=== PATIENT | female | born 1990 | race Caucasian/White ===

== ENCOUNTER 2019-08-26 18:31 | Emergency (ER) | payer OTHER ==
[~2019-08-26] VITALS: Ht 167.6 cm; Wt 59.0 kg
== END 2019-08-26 21:27 | disposition home or self-care (01) ==
LOC: ER 18:31
DX: O46.8X1 Other antepartum hemorrhage, first trimester (principal); Z3A.01 Less than 8 weeks gestation of pregnancy

== ENCOUNTER 2019-09-10 12:35 | Day surgery (SDC) | payer OTHER | END 2019-09-10 20:00 | disposition home or self-care (01) | LOC: CIR.AMB 12:35 | DX: O02.1 Missed abortion (principal) ==

== ENCOUNTER 2022-12-31 21:27 | Emergency (ER) | payer OTHER ==
[~2022-12-31] VITALS: Ht 167.6 cm; Wt 53.5 kg
[2022-12-31] MEDS ORDERED: [UNRECOGNIZED DRUG - OTHER] (21:37)
== END 2022-12-31 22:56 | disposition home or self-care (01) ==
LOC: ER 21:27
DX: O20.8 Other hemorrhage in early pregnancy (principal); Z3A.09 9 weeks gestation of pregnancy; Z91.012 Allergy to eggs; Z91.018 Allergy to other foods

== ENCOUNTER 2023-01-12 13:35 | Emergency (ER) | payer OTHER ==
[~2023-01-12] VITALS: Ht 167.6 cm; Wt 52.6 kg
[~2023-01-12 13:35] MED LIST: [UNRECOGNIZED DRUG - OTHER]
== END 2023-01-12 17:24 | disposition home or self-care (01) ==
LOC: ER 13:35
DX: O26.891 Other specified pregnancy related conditions, first trimester (principal); R10.9 Unspecified abdominal pain; Z91.012 Allergy to eggs; Z91.018 Allergy to other foods; Z3A.10 10 weeks gestation of pregnancy

== ENCOUNTER 2023-01-25 00:29 | Emergency (ER) | payer OTHER ==
[~2023-01-25] VITALS: Ht 167.6 cm; Wt 52.2 kg
== END 2023-01-25 04:15 | disposition home or self-care (01) ==
LOC: ER 00:29
DX: O98.511 Other viral diseases complicating pregnancy, first trimester (principal); Z3A.12 12 weeks gestation of pregnancy; Z91.012 Allergy to eggs; Z91.018 Allergy to other foods; B34.9 Viral infection, unspecified; Z20.822 Contact with and (suspected) exposure to COVID-19

== ENCOUNTER 2023-02-27 08:04 | Outpatient (CLI) | payer OTHER | END 2023-02-27 08:08 | disposition home or self-care (01) | LOC: LAB 08:04 | PROVIDERS: ATTEND Obstetrics & Gynecology Maternal & Fetal Medicine | DX: Z34.82 Encounter for supervision of other normal pregnancy, second trimester (principal) ==

== ENCOUNTER 2023-03-18 15:55 | Outpatient (CLI) | payer OTHER | END 2023-03-18 16:42 | disposition home or self-care (01) | LOC: NST 15:55 | PROVIDERS: ATTEND Obstetrics & Gynecology Maternal & Fetal Medicine | DX: Z34.82 Encounter for supervision of other normal pregnancy, second trimester (principal) ==

== ENCOUNTER 2023-04-09 07:42 | Outpatient (CLI) | payer OTHER ==
[2023-04-09 09:24] LABS: HEMATOCRIT 35.3 % (36.0-45.00); HEMOGLOBIN 11.5 g/dL (12.0-15.00); MEAN CORPUSCULAR HEMOGLOBIN 31.1 pg (27.00-32.0); MEAN CORPUSCULAR HGB CONC 32.7 g/dl (32.0-36.0); PLATELET COUNT 224 K/uL (150-450); RED BLOOD COUNT 3.72 M/uL (4.00-6.00); RED CELL DISTRIBUTION WIDTH 12.3 % (11.5-14.5)
[2023-04-09 09:28] LABS: GLUCOSE FASTING 78 mg/dL (65-100)
== END 2023-04-09 07:43 | disposition home or self-care (01) ==
LOC: LAB 07:42
PROVIDERS: ATTEND Obstetrics & Gynecology
DX: O09.72 Supervision of high risk pregnancy due to social problems, second trimester (principal); Z91.018 Allergy to other foods

== ENCOUNTER 2023-04-24 14:33 | Outpatient (CLI) | payer OTHER ==
[2023-04-24] MEDS ORDERED: PRENATAL TABLE1 EAC1 PO (14:56)
== END 2023-04-24 17:45 | disposition home or self-care (01) ==
LOC: OBS/DEL 14:33
PROVIDERS: ATTEND Obstetrics & Gynecology
DX: O26.892 Other specified pregnancy related conditions, second trimester (principal); Z3A.25 25 weeks gestation of pregnancy; Z91.012 Allergy to eggs; Z91.018 Allergy to other foods

== ENCOUNTER 2023-05-19 03:00 | Outpatient (CLI) | payer OTHER ==
[~2023-05-19 03:00] MED LIST changes: +PRENATAL TABLE1 EAC1 PO
[2023-05-19 07:36] LABS: INR 0.97; PROTHROMBIN TIME 10.2 SECONDS (9.0-11.5)
[2023-05-19 07:38] LABS: HEMATOCRIT 35.4 % (36.0-45.00); HEMOGLOBIN 11.9 g/dL (12.0-15.00); MEAN CELL VOLUME 92.3 fL (80.00-100.00); MEAN CORPUSCULAR HGB CONC 33.6 g/dl (32.0-36.0); PLATELET COUNT 254 K/uL (150-450); RED BLOOD COUNT 3.84 M/uL (4.00-6.00)
[2023-05-19 08:26] LABS: URINE APPEARANCE CLEAR; URINE BILIRRUBIN NEGATIVE (NEGATIVE); URINE BLOOD TRACE; URINE COLOR YELLOW; URINE GLUCOSE NEGATIVE (NEGATIVE)
[2023-05-19 08:27] LABS: PH,URINE 6.5 (5.0-8.0); URINE LEUKOCYTE NEGATIVE; URINE NITRATE NEGATIVE; URINE PROTEIN NEGATIVE (NEGATIVE); URINE RBC 1.8 uL (0.0-20.8); URINE UROBILINOGEN 0.2 E.U./dl; URINE WBC 1.8 uL (0.0-23.2)
[2023-05-19 08:28] LABS: URINE BACTERIA 135.9 uL (0.0-1933); URINE EPITHELIAL CELLS 9.4 uL (0.0-38.8)
== END 2023-05-19 13:41 | disposition home or self-care (01) ==
LOC: OBS/DEL 03:00
PROVIDERS: ATTEND Obstetrics & Gynecology Gynecology
DX: O26.893 Other specified pregnancy related conditions, third trimester (principal); Z3A.29 29 weeks gestation of pregnancy; R10.9 Unspecified abdominal pain; Z91.012 Allergy to eggs; Z91.018 Allergy to other foods

== ENCOUNTER 2023-06-16 09:23 | Outpatient (CLI) | payer OTHER | END 2023-06-16 10:10 | disposition home or self-care (01) | LOC: NST 09:23 | PROVIDERS: ATTEND Obstetrics & Gynecology Maternal & Fetal Medicine | DX: Z34.83 Encounter for supervision of other normal pregnancy, third trimester (principal) ==

== ENCOUNTER 2023-07-08 12:33 | Inpatient (IN) | payer OTHER ==
[~2023-07-08] VITALS: Ht 167.6 cm; Wt 67.1 kg
[2023-08-04 13:23] LABS: HEMATOCRIT 34.5 % (36.0-45.00); HEMOGLOBIN 11.6 g/dL (12.0-15.00); MEAN CELL VOLUME 89.7 fL (80.00-100.00); MEAN CORPUSCULAR HEMOGLOBIN 30.2 pg (27.00-32.0); MEAN CORPUSCULAR HGB CONC 33.7 g/dl (32.0-36.0); PLATELET COUNT 242 K/uL (150-450); RED BLOOD COUNT 3.84 M/uL (4.00-6.00); RED CELL DISTRIBUTION WIDTH 12.3 % (11.5-14.5)
[2023-08-04 13:41] LABS: INR < 0.93; PARTIAL THROMBOPLASTIN TIME 24.4 SECONDS (22.0-34.0); PROTHROMBIN TIME 9.8 SECONDS (9.0-11.5)
[2023-08-04 13:49] LABS: BILIRUBIN TOTAL 0.32 mg/dL (0.3-1.2); CALCIUM 9.3 mg/dL (8.5-10.1); CREATININE SERUM 0.53 mg/dL (0.55-1.02); GFR 132.85; GLOBULINA 3.5 G/DL (2.4-3.5); POTASSIUM 4.26 mEq/L (3.5-5.1); TOTAL PROTEIN 6.5 gm/dL (6.4-8.2)
[2023-08-06 07:03] LABS: HEMATOCRIT 27.5 % (36.0-45.00); HEMOGLOBIN 9.4 g/dL (12.0-15.00); MEAN CELL VOLUME 89.3 fL (80.00-100.00); MEAN CORPUSCULAR HEMOGLOBIN 30.6 pg (27.00-32.0); MEAN CORPUSCULAR HGB CONC 34.3 g/dl (32.0-36.0); PLATELET COUNT 216 K/uL (150-450); RED BLOOD COUNT 3.08 M/uL (4.00-6.00); RED CELL DISTRIBUTION WIDTH 12.4 % (11.5-14.5)
== END 2023-08-07 14:44 | disposition home or self-care (01) | DRG 807 ==
LOC: LDR 08-04 12:12 → OB/GYN 08-04 12:33
PROVIDERS: Obstetrics & Gynecology Gynecology; ADMIT Obstetrics & Gynecology Maternal & Fetal Medicine; ATTEND Obstetrics & Gynecology Maternal & Fetal Medicine
PROC: 0UQMXZZ Repair Vulva, External Approach (ICD-10-PCS; 2023-08-04)
PROC: 10E0XZZ Delivery of Products of Conception, External Approach (ICD-10-PCS; principal; 2023-08-05)
PROC: 0UQG7ZZ Repair Vagina, Via Natural or Artificial Opening (ICD-10-PCS; 2023-08-05)
DX: O70.0 First degree perineal laceration during delivery (principal); Z37.0 Single live birth; Z3A.40 40 weeks gestation of pregnancy; Z20.822 Contact with and (suspected) exposure to COVID-19

== ENCOUNTER 2023-07-15 11:05 | Outpatient (CLI) | payer OTHER | END 2023-07-15 14:22 | disposition home or self-care (01) | LOC: NST 11:05 | PROVIDERS: ATTEND Obstetrics & Gynecology | DX: Z34.83 Encounter for supervision of other normal pregnancy, third trimester (principal) ==

== ENCOUNTER 2023-07-30 15:27 | Outpatient (CLI) | payer OTHER | END 2023-07-30 16:00 | disposition home or self-care (01) | LOC: NST 15:27 | PROVIDERS: ATTEND Obstetrics & Gynecology Maternal & Fetal Medicine | DX: Z34.83 Encounter for supervision of other normal pregnancy, third trimester (principal) ==

== ENCOUNTER 2024-01-18 16:35 | Emergency (ER) | payer OTHER ==
[~2024-01-18] VITALS: Ht 167.6 cm; Wt 49.9 kg
[2024-01-18] MEDS ORDERED: PRENA1 CHEW TA1.4 MG (16:44)
[2024-01-18 18:57] LABS: HEMATOCRIT 39.2 % (36.0-45.00); HEMOGLOBIN 13.1 g/dL (12.0-15.00); MEAN CELL VOLUME 84.9 fL (80.00-100.00); MEAN CORPUSCULAR HEMOGLOBIN 28.4 pg (27.00-32.0); MEAN CORPUSCULAR HGB CONC 33.4 g/dl (32.0-36.0); PLATELET COUNT 194 K/uL (150-450); RED BLOOD COUNT 4.61 M/uL (4.00-6.00); RED CELL DISTRIBUTION WIDTH 14.4 % (11.5-14.5)
== END 2024-01-18 20:33 | disposition home or self-care (01) ==
LOC: ER 16:36
PROVIDERS: Emergency Medicine
DX: J10.1 Influenza due to other identified influenza virus with other respiratory manifestations (principal); Z91.012 Allergy to eggs; Z91.018 Allergy to other foods; Z20.822 Contact with and (suspected) exposure to COVID-19

== ENCOUNTER 2024-09-23 07:10 | Outpatient (CLI) | payer OTHER ==
[~2024-09-23 07:10] MED LIST changes: +PRENA1 CHEW TA1.4 MG
[2024-09-23 07:46] LABS: HEMATOCRIT 39.5 % (36.0-45.00); HEMOGLOBIN 12.9 g/dL (12.0-15.00); MEAN CELL VOLUME 89.3 fL (80.00-100.00); MEAN CORPUSCULAR HEMOGLOBIN 29.3 pg (27.00-32.0); MEAN CORPUSCULAR HGB CONC 32.8 g/dl (32.0-36.0); PLATELET COUNT 240 K/uL (150-450); RED BLOOD COUNT 4.42 M/uL (4.00-6.00); RED CELL DISTRIBUTION WIDTH 13.3 % (11.5-14.5)
[2024-09-23 08:47] LABS: MYCOPLASMA PNEUMONIAE IGM REACTIVE (NO REACTIVE)
== END 2024-09-23 07:14 | disposition home or self-care (01) ==
LOC: LAB 07:10
PROVIDERS: ATTEND Specialist
DX: J11.1 Influenza due to unidentified influenza virus with other respiratory manifestations (principal); Z20.828 Contact with and (suspected) exposure to other viral communicable diseases; Z20.822 Contact with and (suspected) exposure to COVID-19; A49.3 Mycoplasma infection, unspecified site; R50.9 Fever, unspecified

== ENCOUNTER 2024-09-23 08:07 | Outpatient (CLI) | payer OTHER | END 2024-09-23 08:09 | disposition home or self-care (01) | LOC: SONOGRAMA 08:07 | PROVIDERS: ATTEND Obstetrics & Gynecology | DX: R10.2 Pelvic and perineal pain (principal) ==